=== PATIENT | male | born 1990 | race Caucasian/White ===

== ENCOUNTER 2021-08-16 13:02 | Outpatient (CLI) | payer OTHER | END 2021-08-16 13:03 | disposition home or self-care (01) | LOC: CSHMRI 13:02 | PROVIDERS: ATTEND Internal Medicine | DX: M75.120 Complete rotator cuff tear or rupture of unspecified shoulder, not specified as traumatic (principal); S43.432A Superior glenoid labrum lesion of left shoulder, initial encounter; M85.612 Other cyst of bone, left shoulder; M89.512 Osteolysis, left shoulder; M25.712 Osteophyte, left shoulder; M25.412 Effusion, left shoulder; M75.42 Impingement syndrome of left shoulder ==